=== PATIENT | female | born 1960 | race Caucasian/White ===

== ENCOUNTER 2019-10-06 14:14 | Outpatient (CLI) | payer OTHER ==
--- NOTE | 2019-10-08 01:09 | XRAY Report ---
Reason: PAIN IN RT KNEE Procedure Date: 10/06/2019 Accession Number: [id number] / [id number] Procedure: XRS - Knee 3 View RT CPT Code: Final Report FULL RESULT: EXAM: RIGHT KNEE RADIOGRAPHY EXAM DATE: 10/06/2019 02:33 PM. CLINICAL HISTORY: PAIN IN RT KNEE. COMPARISON: None. TECHNIQUE: 3 views. FINDINGS: Bones: No fracture seen. No acute osseous abnormality. Joints: No dislocation seen. Minimal degenerative changes. No joint effusion identified. Soft Tissues: Unremarkable. IMPRESSION: 1. Minimal degenerative changes. No acute abnormality seen. [facility]
== END 2019-10-06 14:15 | disposition home or self-care (01) ==
LOC: DI.S 14:14
PROVIDERS: ATTEND Naturopath
DX: M17.11 Unilateral primary osteoarthritis, right knee (principal)